=== PATIENT | female | born 1980 | race African-American/Black ===

== ENCOUNTER 2022-01-29 05:45 | Emergency (ER) | payer BC ==
[2022-01-29 06:16] LABS: Absolute Lymphocytes (CBC) 2.6 K/uL (0.7-4.9); Hematocrit 36.8 % (36.0-45.0); Lymphocytes % 44.6 % (15.3-44.8); MPV 8.1 fL (7.6-11.3); RBC Red Blood Cell Count 4.05 M/uL (3.86-4.86)
[2022-01-29] MEDS ORDERED: MORPHINE 4 MG/ML SYR ONE ×2 (06:19→07:17)
[2022-01-29] MEDS ORDERED: ONDANSETRON 4 MG/2 ML VIAL ONE (06:20)
[2022-01-29 06:31] LABS: Albumin 3.4 g/dL (3.4-5.0); Bilirubin Total 0.6 mg/dL (0.2-1.0); Potassium 3.8 mmol/L (3.5-5.1); Protein, Total 6.8 g/dL (6.4-8.2)
--- NOTE | 2022-01-29 07:06 | ER ---
Nurse's Notes [facility] Name: Kelsea Estrada Age: 41 yrs Sex: Female : 1980 Arrival Date: 01/29/2022 Time: 05:46 Bed 13 Private MD: Diagnosis: Other cholelithiasis without obstruction Presentation: 01/29 06:00 Chief complaint: Patient states: "I'm having another gallbladder attack", c/o RUQ pain ll3 10/10, states pain started at 0515 and woke her up, states ate [employer] for dinner last night. Coronavirus screen: Vaccine status: Patient reports receiving the 2nd dose of the covid vaccine. At this time, the client does not indicate any symptoms associated with coronavirus-19. Ebola Screen: No symptoms or risks identified at this time. Initial Sepsis Screen: Does the patient meet any 2 criteria? No. Patient's initial sepsis screen is negative. Does the patient have a suspected source of infection? No. Patient's initial sepsis screen is negative. Risk Assessment: Do you want to hurt yourself or someone else? Patient reports no desire to harm self or others. Onset of symptoms was January 29, 2022 at 05:15. 06:00 Method Of Arrival: Wheelchair ll3 06:00 Acuity: MISHEL 3 ll3 Triage Assessment: 06:04 General: Appears uncomfortable, Behavior is cooperative, crying. Pain: Complains of ll3 pain in right upper quadrant Pain currently is 10 out of 10 on a pain scale. Pain began 30 min ago. Is continuous, Noted to be crying, moaning, restless. Neuro: Level of Consciousness is awake, alert, obeys commands, Oriented to person, place, time, situation. GI: Abdomen is round non-distended, Bowel sounds present X 4 quads. Abd is soft X 4 quads Abd is non tender in left upper quadrant, right lower quadrant and left lower quadrant Abdomen is tender to palpation in right upper quadrant Reports upper abdominal pain, Patient currently denies constipation, diarrhea, nausea. Derm: Skin is clammy. 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 - Social history:: Smoking status: Patient denies any tobacco usage or history of. - Family history:: not pertinent. - Hospitalizations: : No recent hospitalization is reported. Screenin:15 Abuse screen: Denies threats or abuse. Denies injuries from another. Nutritional ll3 screening: No deficits noted. Tuberculosis screening: No symptoms or risk factors identified. Fall Risk None identified. Assessment: 06:09 General: See triage assessment. ll3 07:00 Reassessment: RECD REPORT FROM JR VELARDE. 41YO BF P/W ABDOMINAL PAIN 2/2 CHOLELITHIASIS.ll3 07:30 Reassessment: PT D/C HOME AMBULATORY, DX WITH CHOLELITHIASIS WITHOUT OBSTRUCTION. ll3 Vital Signs: 06:00 BP 157 / 74; Pulse 73; Resp 19; Temp 97.8(TE); Pulse Ox 100% on R/A; Weight 78.02 kg ll3 (R); Height 5 ft. 1 in. (154.94 cm) (R); Pain 10/10; 07:15 BP 141 / 73; Pulse 71; Resp 18; Pulse Ox 99% ; ll3 06:00 Body Mass Index 32.50 (78.02 kg, 154.94 cm) ll3 ED Course: 05:46 Patient arrived in ED. bp1 05:48 Radu Pascual MD is Attending Physician. rn 06:00 Jr Pierre RN is Primary Nurse. ll3 06:04 Triage completed. ll3 06:04 Arm band placed on Patient placed in an exam room, on a stretcher, on cardiac cath lab radiology technologist, ll3 on pulse oximetry. 06:11 Inserted saline lock: 22 gauge in left antecubital area, using aseptic technique. Blood ds4 collected. 06:51 Abdomen Limited US In Process Unspecified. EDMS 07:15 Patient has correct armband on for positive identification. Bed in low position. Call ll3 light in reach. Side rails up X2. 07:30 No provider procedures requiring assistance completed. IV discontinued, intact, ll3 bleeding controlled, No redness/swelling at site. Pressure dressing applied. Administered Medications: 06:21 Drug: Zofran (Ondansetron) 4 mg Route: IVP; Site: left antecubital; ll3 07:17 Follow up: Response: No adverse reaction ll3 06:25 Drug: morphine 4 mg Route: IVP; Infused Over: 4 mins; Site: left antecubital; ll3 07:18 Follow up: Response: Pain is decreased ll3 07:00 Drug: morphine 4 mg Route: IVP; Infused Over: 4 mins; Site: left antecubital; ll3 07:36 Follow up: Response: No adverse reaction; Pain is decreased ll3 Medication: 07:15 VIS not applicable for this client. ll3 Outcome: 07:05 Discharge ordered by . rn 07:30 Discharged to home ambulatory. ll3 07:30 Condition: stable 07:30 Discharge instructions given to patient, Instructed on discharge instructions, follow up and referral plans. medication usage, Demonstrated understanding of instructions, follow-up care, medications, Prescriptions given X 1. 07:36 Patient left the ED. ll3 Signatures: Dispatcher [employer] EDMS Radu Pascual MD MD rn Swanson, Donovan ds4 Lisbet Cronin Lynsea, RN RN 3
--- NOTE | 2022-01-29 07:06 | EDPHYS ---
Physician Documentation [facility] Name: Kelsea Estrada Age: 41 yrs Sex: Female : 1980 Arrival Date: 01/29/2022 Time: 05:46 Bed 13 Private MD: ED Physician Radu Pascual HPI: 01/29 05:59 This 41 yrs old Female presents to ER via Unassigned with complaints of Gallbladder rn attack, Abdominal Pain. 05:59 The patient presents with abdominal pain in the epigastric area, in the right upper rn quadrant. Onset: The symptoms/episode began/occurred 2 hour(s) ago. The symptoms do not radiate. 06:00 Associated signs and symptoms: Pertinent positives: nausea, Pertinent negatives: blood rn in stools, chest pain, fever, shortness of breath, vomiting blood. The symptoms are described as burning, sharp. Modifying factors: The symptoms are alleviated by nothing, the symptoms are aggravated by food, touching the area. Severity of pain: At its worst the pain was moderate in the emergency department the pain is unchanged. The patient has experienced similar episodes in the past. The patient has not recently seen a physician. States identical to previous gallbladder attacks. Told has sludge but no stones. Reports ate taco [employer] last night. . DEVELOPMENT ENG: 06:04 LMP N/A - Irregular menses ll3 Historical: - Allergies: 06:04 No Known Allergies; ll3 - PMHx: 06:04 Hypertensive disorder; ll3 - Immunization history:: Client reports receiving the 2nd dose of the Covid vaccine. - Social history:: Smoking status: Patient denies any tobacco usage or history of. - Family history:: not pertinent. - Hospitalizations: : No recent hospitalization is reported. ROS: 06:00 Constitutional: Negative for fever, chills, and weight loss, Eyes: Negative for injury, rn pain, redness, and discharge, Neck: Negative for injury, pain, and swelling, Cardiovascular: Negative for chest pain, palpitations, and edema, Respiratory: Negative for shortness of breath, cough, wheezing, and pleuritic chest pain, Abdomen/GI: Negative for vomiting, diarrhea, and constipation, Back: Negative for injury and pain, MS/Extremity: Negative for injury and deformity, Skin: Negative for injury, rash, and discoloration, Neuro: Negative for headache, weakness, numbness, tingling, and seizure. Exam: 06:00 Constitutional: This is a well developed, well nourished patient who is awake, alert, rn tearful Head/Face: Normocephalic, atraumatic. Cardiovascular: Regular rate and rhythm. No pulse deficits. Respiratory: No increased work of breathing, no retractions or nasal flaring. Abdomen/GI: soft, + tender RUQ and epigastric region, no masses Skin: Warm, dry MS/ Extremity: Pulses equal, no cyanosis. Neuro: Awake and alert, GCS 15 Vital Signs: 06:00 BP 157 / 74; Pulse 73; Resp 19; Temp 97.8(TE); Pulse Ox 100% on R/A; Weight 78.02 kg ll3 (R); Height 5 ft. 1 in. (154.94 cm) (R); Pain 10/10; 07:15 BP 141 / 73; Pulse 71; Resp 18; Pulse Ox 99% ; ll3 06:00 Body Mass Index 32.50 (78.02 kg, 154.94 cm) ll3 MDM: 05:48 Patient medically screened. rn 07:00 Differential diagnosis: cholecystitis, Cholelithiasis, gastritis, gastroesophageal rn reflux disease, non-specific abd pain, Peptic Ulcer Disease. Data reviewed: vital signs, nurses notes, lab test result(s), radiologic studies, ultrasound, and as a result, I will discharge patient. Counseling: I had a detailed discussion with the patient and/or guardian regarding: the historical points, exam findings, and any diagnostic results supporting the discharge/admit diagnosis, lab results, radiology results, the need for outpatient follow up, to return to the emergency department if symptoms worsen or persist or if there are any questions or concerns that arise at home. Response to treatment: the patient's symptoms have markedly improved after treatment, and as a result, I will discharge patient. Special discussion: Based on the patient's Hx, exam, and Dx evaluation, there is no indication for emergent surgery or inpatient Tx. It is understood by the patient/guardian that if the Sx's persist or worsen they need to return immediately for re-evaluation. I discussed with the patient/guardian in detail that at this point there is no indication for admission to the hospital. It is understood, however, that if the symptoms persist or worsen the patient needs to return immediately for re-evaluation. Based on the history and exam findings, there is no indication for further emergent testing or inpatient evaluation. I discussed with the patient/guardian the need to see the general surgeon for further evaluation of the symptoms. ED course: Pt feels much better, U/S tech reports stones but no thickening or PCF. Afebrile. No elevation in WBC/lipase/alk phos. Will dc home and instructed to f/u with gen surgery for cholecystectomy. Given return precautions. Pt thankful. . 01/29 05:59 Order name: CBC with Diff; Complete Time: 06:32 rn 01/29 05:59 Order name: CMP; Complete Time: 06:32 rn 01/29 05:59 Order name: Lipase; Complete Time: 06:32 rn 01/29 05:59 Order name: Abdomen Limited US rn 01/29 06:44 Order name: Urine --Ancillary (enter results) ll3 01/29 05:59 Order name: IV Saline Lock; Complete Time: 06:10 rn 01/29 05:59 Order name: Labs collected and sent; Complete Time: 06:10 rn 01/29 05:59 Order name: Urine Test (obtain specimen); Complete Time: 06:40 rn Administered Medications: 06:21 Drug: Zofran (Ondansetron) 4 mg Route: IVP; Site: left antecubital; ll3 07:17 Follow up: Response: No adverse reaction ll3 06:25 Drug: morphine 4 mg Route: IVP; Infused Over: 4 mins; Site: left antecubital; ll3 07:18 Follow up: Response: Pain is decreased ll3 07:00 Drug: morphine 4 mg Route: IVP; Infused Over: 4 mins; Site: left antecubital; ll3 07:36 Follow up: Response: No adverse reaction; Pain is decreased ll3 Disposition Summary: 01/29/22 07:05 Discharge Ordered Location: Home rn Problem: an acute exacerbation rn Symptoms: have improved rn Condition: Stable rn Diagnosis - Other cholelithiasis without obstruction rn Followup: rn - With: Private Physician - When: As needed - Reason: Recheck today's complaints, Re-evaluation by your physician Discharge Instructions: - Discharge Summary Sheet rn - Cholelithiasis rn Forms: - Medication Reconciliation Form rn - Thank You Letter rn - 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
[2022-01-29 07:42] VITALS: TEMP 97.8
[2022-01-29 07:44] VITALS: BP 141/73; O2SAT 99
--- NOTE | 2022-01-29 08:07 | RAD REPORT ---
EXAM DESCRIPTION: US - Abdomen Exam Limited - 01/29/2022 6:50 am CLINICAL HISTORY: ABD PAIN COMPARISON: No comparisons FINDINGS: The gallbladder demonstrates small gallstones near the gallbladder neck. No pericholecysti c fluid or gallbladder wall thickening. The common bile duct is normal measuring 4 mm. The liver demonstrates no findings of intrahepatic biliary dilatation. IMPRESSION: Cholelithiasis.
== END 2022-01-29 07:36 | disposition home or self-care (01) ==
LOC: ER 05:45
DX: K80.80 Other cholelithiasis without obstruction (principal); I10 Essential (primary) hypertension
CPT/HCPCS: 85025; 36415; 81025; 83690; 80053; 76705; 96375; 96374; 99284; J2405